=== PATIENT | male | born 1970 | race Caucasian/White ===

== ENCOUNTER → 2019-06-01 09:31 | Outpatient (BNVA) | payer MEDICARE, MEDICAID, SELFPAY | PROVIDERS: Visit Provider Nurse Practitioner | DX: F33.0 Major depressive disorder, recurrent, mild (principal); F43.12 Post-traumatic stress disorder, chronic | CPT/HCPCS: 80061; 83036; 99214 ==

== ENCOUNTER → 2019-08-28 08:15 | Outpatient (BNVA) | payer MEDICARE, MEDICAID, SELFPAY | PROVIDERS: Visit Provider Nurse Practitioner | DX: F33.0 Major depressive disorder, recurrent, mild (principal); F43.12 Post-traumatic stress disorder, chronic | CPT/HCPCS: 99214 ==

== ENCOUNTER → 2019-12-08 08:28 | Outpatient (BNVA) | payer MEDICARE, MEDICAID, SELFPAY | PROVIDERS: Visit Provider Nurse Practitioner | DX: F33.0 Major depressive disorder, recurrent, mild (principal); F43.12 Post-traumatic stress disorder, chronic | CPT/HCPCS: 99213 ==

== ENCOUNTER → 2020-06-14 07:35 | Outpatient (BNVA) | payer MEDICARE, MEDICAID, SELFPAY | PROVIDERS: Visit Provider Nurse Practitioner | DX: F33.0 Major depressive disorder, recurrent, mild (principal); F43.12 Post-traumatic stress disorder, chronic | CPT/HCPCS: 99214 ==

== ENCOUNTER → 2020-07-12 08:57 | Outpatient (BNVA) | payer MEDICARE, MEDICAID, SELFPAY | PROVIDERS: Visit Provider Nurse Practitioner | DX: F33.0 Major depressive disorder, recurrent, mild (principal); F43.12 Post-traumatic stress disorder, chronic | CPT/HCPCS: 99214 ==

== ENCOUNTER → 2020-10-15 07:10 | Outpatient (BNVA) | payer MEDICARE, MEDICAID, SELFPAY | PROVIDERS: Visit Provider Nurse Practitioner | DX: F43.12 Post-traumatic stress disorder, chronic (principal); F33.0 Major depressive disorder, recurrent, mild | CPT/HCPCS: 99214 ==

== ENCOUNTER → 2020-12-11 07:22 | Outpatient (BNVA) | payer MEDICARE, MEDICAID, SELFPAY | PROVIDERS: Visit Provider Nurse Practitioner | DX: F43.12 Post-traumatic stress disorder, chronic (principal); F33.0 Major depressive disorder, recurrent, mild; Z79.899 Other long term (current) drug therapy | CPT/HCPCS: 99214 ==

== ENCOUNTER → 2021-02-06 07:53 | Outpatient (BNVA) | payer MEDICARE, MEDICAID, SELFPAY | PROVIDERS: Visit Provider Nurse Practitioner | DX: F43.12 Post-traumatic stress disorder, chronic (principal); F33.0 Major depressive disorder, recurrent, mild | CPT/HCPCS: 99214 ==

== ENCOUNTER → 2021-05-06 07:54 | Outpatient (BNVA) | payer MEDICARE, MEDICAID, SELFPAY | PROVIDERS: Visit Provider Nurse Practitioner | DX: F43.12 Post-traumatic stress disorder, chronic (principal); F33.0 Major depressive disorder, recurrent, mild | CPT/HCPCS: 99214 ==

== ENCOUNTER → 2021-08-27 07:19 | Outpatient (BNVA) | payer MEDICARE, MEDICAID, SELFPAY | PROVIDERS: Visit Provider Nurse Practitioner | DX: F33.0 Major depressive disorder, recurrent, mild (principal); F43.12 Post-traumatic stress disorder, chronic; F10.129 Alcohol abuse with intoxication, unspecified | CPT/HCPCS: 99214 ==

== ENCOUNTER → 2022-01-20 15:37 | Outpatient (BNVA) | payer MEDICARE, MEDICAID, OTHER, SELFPAY | PROVIDERS: Visit Provider Nurse Practitioner | DX: F43.12 Post-traumatic stress disorder, chronic (principal); F33.0 Major depressive disorder, recurrent, mild; F10.129 Alcohol abuse with intoxication, unspecified; Z79.899 Other long term (current) drug therapy | CPT/HCPCS: 80061; 80305; 83036 ==

== ENCOUNTER → 2022-01-21 15:37 | Outpatient (BNVA) | payer MEDICARE, MEDICAID, OTHER, SELFPAY | PROVIDERS: Visit Provider Nurse Practitioner | DX: F43.12 Post-traumatic stress disorder, chronic (principal); F33.0 Major depressive disorder, recurrent, mild; F10.129 Alcohol abuse with intoxication, unspecified; Z79.899 Other long term (current) drug therapy | CPT/HCPCS: 80306 ==

== ENCOUNTER 2022-04-14 19:22 | Emergency (ER) | payer MEDICARE, MEDICAID, SELFPAY ==
[2022-04-14 19:23] VITALS: BP 138/89; PULSE 107; RESP 17; O2SAT 95; BMI 17.5
--- NOTE | 2022-04-14 19:23 | XRR_ITS ---
PROCEDURE INFORMATION: Exam: XR Chest Exam date and time: 04/14/2022 7:31 PM Age: 52 years old Clinical indication: Chest pressure; Patient HX: Chest pain beginning today with shortness of breath; Additional info: Cp TECHNIQUE: Imaging protocol: Radiologic exam of the chest. Views: 1 view. COMPARISON: No relevant prior studies available. FINDINGS: Lungs: Unremarkable. No consolidation. Pleural spaces: Unremarkable. No pleural effusion. No pneumothorax. Heart/Mediastinum: Unremarkable. No cardiomegaly. Bones/joints: Unremarkable. XR/XR chest 1V portable [id number] IMPRESSION: No acute findings.
--- NOTE | 2022-04-14 19:26 | ECG_ITS ---
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 Measurements Intervals [place] Rate: 104 P: 77 FL: 164 QRS: 48 QRSD: 97 T: 74 QT: 367 QTc: 483 Interpretive Statements SINUS TACHYCARDIA ABNORMAL RHYTHM ECG No previous ECG available for comparison Electronically Signed On 04-15-2022 9:27:14 SUPERVISOR FUSING ROOM by Jovanny Cutler M.D. [id number]
--- NOTE | 2022-04-14 19:28 | W.ED.CHESTPA ---
HPI - Chest Pain General: Chief Complaint: Chest Pain Stated Complaint: CP Time Seen by Provider: 04/14/22 19:22 Source: patient and EMS Mode of arrival: EMS Limitations: no limitations History of Present Illness: 52-year-old male states that he left home a halfway this afternoon was walking up and down started having some chest pain at 5 he states the pain is a sharp pain in the center of his chest states pain is currently a 4 out of 10 he denies any worsening proving factors denies any nausea denies any diaphoresis. Associated symptoms: Deny abdominal pain, dyspnea, fever(s), nausea or vomiting Review of Systems Const: Denies: fever(s), chills, body aches or change in appetite Eyes: Denies: blurry vision or eye discomfort ENMT: Denies: throat pain or dental pain Card: Reports: chest pain Resp: Denies: dyspnea GI: Denies: abdominal pain, nausea, vomiting or diarrhea : Denies: dysuria Musc: Denies: neck pain or back pain Skin/Breast: Denies: rash Neuro: Denies: headache(s) Psych: Denies: depression Luis/Lymph: Denies: easy bruising All/Imm: Denies: urticaria PFSH ED PFSH: Medical History Alcohol dependence, in remission Alcohol intoxication, episodic Major depressive disorder, recurrent, mild On combination antipsychotic drug therapy Post-traumatic stress disorder, chronic Psychiatric care Social History Smoking and tobacco status: current every day smoker cigarettes Packs smoked per day: 1 Smoking risk assessment/counseling performed?: Yes Tobacco counseling given: counseling >3 minutes Physical Exam Const: COMMON NORMALS: no acute distress, patient oriented x3 and healthy appearing HENMT: COMMON NORMALS: normocephalic and atraumatic HEAD & SCALP: normocephalic and atraumatic Eye: COMMON NORMALS: Equal, round and reactive pupils present and EOMs intact bilaterally PUPIL: Yes Equal, round and reactive pupils present Neck/C-Spine: COMMON NORMALS: full ROM and supple Chest: COMMONS NORMALS: normal inspection of the chest and normal palpation of entire chest wall Resp: COMMON NORMALS: normal respiratory effort, No retractions, No use of accessory muscles and clear to auscultation bilaterally AUSCULTATION: clear to auscultation bilaterally Cardio: COMMON NORMALS: regular rate, regular rhythm and No murmurs present (Cardio) RATE: regular rate RHYTHM: regular rhythm GI: COMMON NORMALS: Normal to inspection, nondistended, normoactive bowel sounds present, Soft to palpation, non-tender and no masses PALPATION: Yes Soft to palpation Extremity: COMMON NORMALS: normal to inspection and full ROM Neuro: COMMON NORMALS: patient oriented x3, moves all extremities and no focal motor deficits Psych: COMMON NORMALS: mental status grossly normal, Normal thought process present and cooperative THOUGHT PROCESS: Normal thought process present Skin: COMMON NORMALS: no rashes or lesions noted and no wounds GENERAL SKIN EXAM: no rashes or lesions noted Course Vital Signs: Vital signs: Vital Signs Temperature 98.7 F 04/14/22 19:30 Pulse Rate 78 04/14/22 20:48 Respiratory Rate 18 04/14/22 20:48 Blood Pressure 153/95 04/14/22 20:48 Pulse Oximetry 98 04/14/22 20:48 Oxygen Delivery Me thod 04/14/22 19:23 MDM - Chest Pain Medical Decision Making Patient with no chest pains atypical in nature troponins here are normal lipase is normal as well did inform him of findings on the CT of a possible gastric mass we will get him set up for an endoscopic he is to follow-up and return if worsening he understands agrees to plan. Lab Data 04/14/22 19:36 04/14/22 19:36 Radiology Impressions Chest X-Ray 04/14/22 19:23 IMPRESSION: No acute findings. Chest CTA 04/14/22 20:30 IMPRESSION: 1. No pulmonary embolus. 2. Mild emphysema. 3. Focal thickening in the proximal stomach is indeterminate. Recommend endoscopy correlation to exclude a mass. 4. Findings of chronic pancreatitis. Minimal fluid is seen adjacent to the pancreas, suspicious for mild acute pancreatitis as well. Correlate with history and lipase levels. Consider dedicated abdominal/pelvic CT. COMMENTS: In the absence of a history or active diagnosis of lung cancer, it is recommended that this patient with emphysema be evaluated for enrollment in a low dose CT lung cancer screening program. Laboratory Results WBC 6.3 10^3/uL (4.0-10.0) 04/14/22 19:36 RBC 4.19 10^6/uL (4.1-5.3) 04/14/22 19:36 Hgb 13.9 g/dL (11.7-16.6) 04/14/22 19:36 Hct 41.3 % (42.0-52.0) L 04/14/22 19:36 MCV 98.6 fl (80-94) H 04/14/22 19:36 MCH 33.2 pg (28.0-34.0) 04/14/22 19:36 MCHC 33.7 g/dL (30.0-36.0) 04/14/22 19:36 RDW 13.6 % (12.1-15.1) 04/14/22 19:36 Plt Count 257 10^3/cmm (130-400) 04/14/22 19:36 MPV 10.3 fL (7.4-10.4) 04/14/22 19:36 Neut % (Auto) 63.1 % 04/14/22 19:36 Lymph % (Auto) 25.8 % 04/14/22 19:36 Burke % (Auto) 8.6 % 04/14/22 19:36 Eos % (Auto) 1.6 % 04/14/22 19:36 Baso % (Auto) 0.6 % 04/14/22 19:36 Neut # (Auto) 3.97 10^3/uL (1.8-7.7) 04/14/22 19:36 Lymph # (Auto) 1.6 10^3/uL (0.8-4.8) 04/14/22 19:36 Burke # (Auto) 0.5 10^3/uL (0.2-0.9) 04/14/22 19:36 Eos # (Auto) 0.1 10^3/uL (0.0-0.8) 04/14/22 19:36 Baso # (Auto) 0.0 10^3/uL (0.0-0.1) 04/14/22 19:36 Nucleated RBC % (auto) 0 % 04/14/22 19:36 Nucleated RBCs # 0.0 /100WBC 04/14/22 19:36 D-Dimer 1.84 ug/mIFEU (0-0.59) H 04/14/22 19:49 Sodium 136 mmol/L (136-145) 04/14/22 19:36 Potassium 3.3 mmol/L (3.5-5.1) L 04/14/22 19:36 Chloride 95 mmol/L (98-107) L 04/14/22 19:36 Carbon Dioxide 29 mmol/L (22-29) 04/14/22 19:36 Anion Gap 15.3 (5-19) 04/14/22 19:36 BUN 2 mg/dL (6-20) L 04/14/22 19:36 Creatinine 0.5 mg/dL (0.7-1.2) L 04/14/22 19:36 GFR Calculation 173.9 mL/min (90-130) H 04/14/22 19:36 Glucose 117 mg/dL (65-115) H 04/14/22 19:36 Calculated Osmolality 279 mOsm/kg (285-295) L 04/14/22 19:36 Calcium 9.9 mg/dL (8.5-10.5) 04/14/22 19:36 Total Bilirubin 0.6 mg/dL (0.15-1.2) 04/14/22 19:36 AST 23 U/L (0-40) 04/14/22 19:36 ALT 13 U/L (0-41) 04/14/22 19:36 Alkaline Phosphatase 138 U/L (40-130) H 04/14/22 19:36 Troponin T Baseline 8 ng/L (0-15) 04/14/22 19:36 Troponin T 120 Minute 9.14 ng/L (0-15) 04/14/22 21:03 Total Protein 7.0 g/dL (6.6-8.7) 04/14/22 19:36 Albumin 3.7 g/dL (3.5-5.2) 04/14/22 19:36 Globulin 3.3 g/dL (1.3-4.6) 04/14/22 19:36 Lipase 57 U/L (13-60) 04/14/22 19:36 Ethyl Alcohol < 10 mg/dL (0-10) 04/14/22 19:36 EKG Data EKG 1: I personally reviewed and interpreted this EKG as follows: EKG interpretation date: 04/14/22 EKG interpretation time: 19:26 Interpretation: sinus tach hr [address] or t wave abnormalities qrs 97 qtc 427 Discharge Plan Discharge Patient Disposition: Home Clinical Impression: Chest pain Condition: Stable Prescriptions: No Action fluoxetine [Prozac] 40 mg capsule 40 mg PO DAILY Qty: 30 2RF trazodone 100 mg tablet 100 mg PO .HS Qty: 30 2RF paliperidone [Invega] 6 mg tablet extended release 24hr 12 mg PO QAM Qty: 60 2RF hydroxyzine HCl 50 mg tablet 100 mg PO .at bed Qty: 60 2RF gabapentin 600 mg tablet 600 mg PO TID Qty: 90 2RF fluoxetine [Prozac] 20 mg capsule 20 mg PO DAILY Qty: 30 2RF Discharge Orders: Discharge ED (Routine); Ordered 04/14/22 Ordered By: Thelma Martínez Referrals: Sg Valerio DO [Physician] - 1-3 days Discharge Diet: Advance as tolerated Discharge Activity: Resume usual activity Patient Instructions: Chest Pain (ED) Activity Restrictions/Additional Instructions: follow up with dr. 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
[2022-04-14 19:30] VITALS: TEMP 37.1
[2022-04-14 19:56] LABS: Basophils % 0.6 %; Eosinophils # 0.1 10^3/uL (0.0-0.8); Eosinophils % 1.6 %; Hematocrit 41.3 % (42.0-52.0); Hemoglobin 13.9 g/dL (11.7-16.6); Lymphocytes # 1.6 10^3/uL (0.8-4.8); Lymphocytes % 25.8 %; Mean Corpuscular HGB Conc 33.7 g/dL (30.0-36.0); Mean Corpuscular Hemoglobin 33.2 pg (28.0-34.0); Mean Corpuscular Volume 98.6 fl (80-94); Mean Platelet Volume 10.3 fL (7.4-10.4); Monocytes # 0.5 10^3/uL (0.2-0.9); Monocytes % 8.6 %; Neutrophils # 3.97 10^3/uL (1.8-7.7); Neutrophils % 63.1 %; Nucleated Red Blood Cells % 0 %; Platelet Count 257 10^3/cmm (130-400); Red Blood Count 4.19 10^6/uL (4.1-5.3); Red Cell Distribution Width 13.6 % (12.1-15.1); White Blood Count 6.3 10^3/uL (4.0-10.0)
[2022-04-14 20:11] LABS: D Dimer 1.84 ug/mIFEU (0-0.59)
[2022-04-14 20:13] LABS: Alanine Aminotransferase 13 U/L (0-41); Albumin Level 3.7 g/dL (3.5-5.2); Alkaline Phosphatase 138 U/L (40-130); Anion Gap 15.3 (5-19); Aspartate Amino Transferase 23 U/L (0-40); Blood Urea Nitrogen 2 mg/dL (6-20); Calcium 9.9 mg/dL (8.5-10.5); Carbon Dioxide 29 mmol/L (22-29); Chloride 95 mmol/L (98-107); Globulin 3.3 g/dL (1.3-4.6); Glomerular Filtration Rate 173.9 mL/min (90-130); Glucose 117 mg/dL (65-115); Lipase 57 U/L (13-60); Osmolality Calculated 279 mOsm/kg (285-295); Potassium 3.3 mmol/L (3.5-5.1); Sodium 136 mmol/L (136-145); Total Bilirubin 0.6 mg/dL (0.15-1.2)
[2022-04-14 20:14] LABS: Troponin(5th) Baseline 8 ng/L (0-15)
[2022-04-14 20:15] VITALS: BP 162/98; PULSE 90; RESP 18; O2SAT 98
[2022-04-14 20:19] LABS: Alcohol Level < 10 mg/dL (0-10)
--- NOTE | 2022-04-14 20:30 | CTR_ITS ---
PROCEDURE INFORMATION: Exam: CTA Chest With Contrast Exam date and time: 04/14/2022 8:38 PM Age: 52 years old Clinical indication: Pain and abnormal findings; Abnormal diagnostic tests; Elevated d-dimer; Chest pressure; Patient HX: Chest pain with elevated d dimer; Additional info: Cp TECHNIQUE: Imaging protocol: Computed tomographic angiography of the chest with contrast. 3D rendering (Not supervised by radiologist): MIP and/or 3D reconstructed images were created by the technologist. Radiation optimization: All CT scans at this facility use at least one of these dose optimization techniques: automated exposure control; mA and/or kV adjustment per patient size (includes targeted exams where dose is matched to clinical indication); or iterative reconstruction. Contrast material: OMNI 350; Contrast volume: 100 ml; Contrast route: INTRAVENOUS (IV); Other protocol: This patient has received 0 known CTs and 0 known cardiac nuclear medicine studies in the 12 months prior to the current study. COMPARISON: CR (CHEST, ) 04/14/2022 7:31 PM RADIATION DOSE METRICS: Total DLP (mGy-cm): 213.78 FINDINGS: Tubes, catheters and devices: Surgical clips are seen anterior to the pancreatic neck and posterior to the duodenum. Pulmonary arteries: Normal. No pulmonary emboli. Aorta: Unremarkable. No aortic aneurysm. No aortic dissection. Trachea: Minimal debris in the trachea. No focal consolidation. Lungs: Mild centrilobular and paraseptal emphysema. Pleural spaces: Unremarkable. No pneumothorax. No pleural effusion. Heart: Unremarkable. No cardiomegaly. No pericardial effusion. Lymph nodes: Unremarkable. No enlarged lymph nodes. Pancreas: Calcifications in the pancreas consistent with chronic pancreatitis. Minimal fluid is seen adjacent to the distal pancreas. Stomach and bowel: Focal thickening present in the proximal stomach indeterminate. Bones/joints: Unremarkable. No acute fracture. Soft tissues: Unremarkable. CT/CT angio chest PE protcl [id number] IMPRESSION: 1. No pulmonary embolus. 2. Mild emphysema. 3. Focal thickening in the proximal stomach is indeterminate. Recommend endoscopy correlation to exclude a mass. 4. Findings of chronic pancreatitis. Minimal fluid is seen adjacent to the pancreas, suspicious for mild acute pancreatitis as well. Correlate with history and lipase levels. Consider dedicated abdominal/pelvic CT. COMMENTS: In the absence of a history or active diagnosis of lung cancer, it is recommended that this patient with emphysema be evaluated for enrollment in a low dose CT lung cancer screening program.
[2022-04-14 20:48] VITALS: BP 153/95; PULSE 78; RESP 18; O2SAT 98
[2022-04-14] MEDS: iohexol 350 mg/mL 500 mL Btl (per mL) IV (20:48)
--- NOTE | 2022-04-14 21:14 | ECG_ITS ---
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 Measurements Intervals [place] Rate: 74 P: 67 IN: 188 QRS: 76 QRSD: 98 T: 79 QT: 405 QTc: 452 Interpretive Statements SINUS RHYTHM No previous ECG available for comparison Electronically Signed On 04-15-2022 9:30:27 SUPERVISING PRODUCER by Jovanny Cutler M.D. [id number]
[2022-04-14 21:25] LABS: Troponin 5 2HR 9.14 ng/L (0-15)
[2022-04-14 21:51] LABS: Troponin 5 2HR Delta 1.14 ABS# (0-10)
--- NOTE | 2022-04-16 09:40 | DCPLANNER ---
Addendum entered by Shiloh Lira 04/24/22 11:09: sustainable products marketing manager called the [facility] to confirm that clinic received patients information. sustainable products marketing manager was told that patient did receive patients information, it will be reviewed. Clinic will call patient with appointment information. Addendum entered by Shiloh Lira 04/23/22 14:57: The General Surgery clinic called social work case manager informing social work case manager that Dr. Parsons is not in network with [facility], so patient would need to be referred elsewhere. sustainable products marketing manager called patient and explained this to patient, social work case manager asked patient where he would like to be referred to. Patient stated that he would like to be referred to [facility] general surgery. sustainable products marketing manager faxed patients information to [facility]. Original Note: sustainable products marketing manager had message to schedule a follow up appointment for patient with general surgery. sustainable products marketing manager sent patients information to the front office staff at general surgery. Patients information will be printed and reviewed. Clinic will call patient with appointment information.
== END 2022-04-14 21:36 | disposition home or self-care (01) ==
PROVIDERS: Emergency Provider Emergency Medicine; PCP Family Medicine
DX: R07.9 Chest pain, unspecified (principal); F17.210 Nicotine dependence, cigarettes, uncomplicated
CPT/HCPCS: 36415; 71045; 71275; 80053; 80307; 83690; 84484; 85025; 85378; 93005; 99285; Q9967

== ENCOUNTER → 2023-11-02 13:32 | Outpatient (BNVA) | payer MEDICARE, OTHER, SELFPAY | PROVIDERS: PCP Family Medicine; Visit Provider Nurse Practitioner | DX: Z79.899 Other long term (current) drug therapy (principal) | CPT/HCPCS: 80061; 80306; 83036 ==